=== PATIENT | male | born 1975 | race Caucasian/White ===

== ENCOUNTER 2017-01-15 12:27 | Emergency (ER) | payer OTHER ==
--- NOTE | 2017-01-15 13:18 | RAD ---
EXAM DESCRIPTION: Chest,1 View CLINICAL HISTORY: desat after turning, vent pt COMPARISON: None. IMPRESSION: Single AP portable upright view of the chest shows cardiac silhouette and pulmonary vasculature to be within normal limits. Tracheostomy tube is seen in place with tip at the level of the clavicular heads. Remote appearing left-sided rib trauma is seen. There is some elevation of the left hemidiaphragm with linear probable scarring or atelectasis in the right lung base. There is indistinctness of the left costophrenic angle and hemidiaphragm the could represent small left pleural effusion or chronic pleural thickening given the remote left-sided rib trauma. Increased density in the left retrocardiac region could represent left lower lobe atelectasis or infiltrate versus hiatal hernia. Electronically signed by: Bear Hernandez MD 01/15/2017 1:17 PM CDT
[2017-01-15 14:59] VITALS: O2SAT 98
--- NOTE | 2017-01-15 15:15 | CT ---
EXAM DESCRIPTION: Chest w/o Contrast CLINICAL HISTORY: hypoxia, left lower abnormality COMPARISON: Chest x-ray 01/15/2017. TECHNIQUE: Spiral-axial scans at 5.0 mm intervals through the lungs and thorax without IV contrast. Coronal and sagittal 2.0 Mm reconstructions. No adverse reactions. Total Exam DLP: 687.3 mGy-cm. This exam was performed according to our departmental dose-optimization program which includes automated exposure control, adjustment of the mA and/or kV according to patient size and/or use of iterative reconstruction technique; to reduce radiation dose to as low as reasonably achievable (ALARA). FINDINGS: Atelectasis involving almost the entire left lower lobe with volume loss. Scattered air bronchograms throughout the lobe with no calcifications. Left upper lobe and lingula are expanded. Left lower lobe bronchus is obstructed, but fine detail is limited due to lack of IV contrast. Patchy densities in the inferior lingula. Questionable small effusion. Consolidation with air bronchograms and atelectasis involving most of the right lower lobe. The right upper lobe and right middle lobe are showing compensatory expansion. Perihilar peribronchial wall thickening bilateral upper lobe bronchi and the right bronchus intermedius. Left lower lobe bronchus is narrowed but not obstructed. Ill-defined consolidation in the posterior segment of the right upper lobe extending to the pleura. Questionable small effusion. Endotracheal soft tissue density around the tracheostomy and extending to the posterior hyoid bone with small air bubbles. In the airway. Heterogeneous density in the thyroid gland. Small lymph nodes in the superior and anterior mediastinum. Hilar lymph nodes are difficult to distinguish from pulmonary vascularity with lack of IV contrast. No free air in the included peritoneal space. Gastrostomy tube is present and there is also a catheter in the proximal small bowel partially visualized. No free fluid in the peritoneal space. IMPRESSION: 1. Almost complete collapse of the left lower lobe with few air bronchograms. Compensatory expansion of the left upper lobe and lingula with small infiltrate or atelectasis in the lingula. Left lower lobe bronchus appears to be completely occluded. Unable to determine if intrinsic or extrinsic. Minimal pleural effusion. 2. Atelectasis and infiltrate involving most of the right lower lobe with volume loss. However the right lower lobe bronchus is patent with multiple air bronchograms throughout the lobe. No definite pleural effusion. 3. Tracheostomy tube in customary position. Distal tip is patent. Proximal tube surrounded by soft tissue density extending superiorly in the airway occluding the airway. Electronically signed by: Joseph Kaur MD 01/15/2017 3:14 PM CDT
[2017-01-15] MEDS ORDERED: MEROPENEM 1 GM in SODIUM CHL 0.9% 50ML MIN-BAG+ 50 ML IVPB ONE (15:23)
--- NOTE | 2017-01-15 15:55 | ED.PDOC ---
History of Present Illness - General Chief Complaint: Respiratory Problem Stated Complaint: decreased oxygen sats Time Seen by Provider: 01/15/17 12:28 Source: EMS notes reviewed, family, skilled nursing records Exam Limitations: clinical condition - History of Present Illness Initial Comments: the patient is a 41-year-old male presenting to the emergency room secondary to desaturating at the skilled nursing when his caregivers turn him to treat his sacral wound. The patient is ventilator dependent secondary to traumatic injury around a year ago. He is a quadriplegic. He is unable to communicate. According to his who is present he has had multiple DVTs with PEs. He is supratherapeutic on his INR today with INR of 5.2. No evidence of any spontaneous bleeding. The reports that he did have [place] filters 2 that were taken out. The patient has been on cefuroxime according to skilled nursing records. The states that they put him on that several days ago after an x-ray indicating a possible pneumonia. He is on slightly elevated ventilator settings compared to his baseline currently. He is not febrile. Timing/Duration: unsure Severity: severe Improving Factors: nothing Worsening Factors: nothing Allergies/Adverse Reactions: Allergies NO KNOWN ALLERGY Allergy (Verified 01/15/17 12:57) Home Medications: Ambulatory Orders Acetaminophen [Acetaminophen Extra Stren] 1,000 mg PO Q6H PRN 01/15/17 Baclofen 10 mg PEG TID 01/15/17 Cholecalciferol [Vitamin D3] 1,000 unit PEG DAILY 01/15/17 Coenzyme Q10 (Ubidecarenone) [Coenzyme Q10] 50 mg PEG Q12H 01/15/17 Cyanocobalamin [Vitamin B-12] 1,000 mcg PEG DAILY 01/15/17 Escitalopram [Lexapro] 30 mg PEG DAILY 01/15/17 Esomeprazole Magnesium [Nexium] 40 mg PEG DAILY 01/15/17 Ferrous Sulfate [Ferosul] 220 mg PEG BID 01/15/17 Gabapentin 600 mg PEG TID 01/15/17 Guaifenesin [Tussin Adult] 30 ml PEG QID 01/15/17 HYDROcodone 7.5MG/APAP 325MG [[place] 7.5/325] 1 tab PEG Q12H 01/15/17 Ipratropium/Albuterol [Duoneb] 3 ml NEB Q6H 01/15/17 Lactobacillus [Acidophilus] 1 cap PEG BID 01/15/17 Liothyronine Sodium 7.5 mcg PO DAILY 01/15/17 Loratadine 10 mg PEG DAILY 01/15/17 Methylphenidate HCl 5 mg PEG DAILY 01/15/17 Midodrine HCl 5 - 10 mg PEG PRN 01/15/17 Nutritional Supplements [Grey] 1 pow PEG BID 01/15/17 Ondansetron HCl 4 mg PEG Q6H PRN 01/15/17 Polyvinyl Alcohol [Artificial Tears] 1.4 % OP QID PRN 01/15/17 Potassium Chloride Elixir [Kaochlor Liquid] 15 ml PEG BID 01/15/17 Thiamine HCl 100 mg PEG BID 01/15/17 Tobramycin-Dexamethasone [Tobramycin/Dexamethasone] 1 davi BOTH_EYES BID Tramadol HCl 100 mg PEG TID PRN 01/15/17 Warfarin Sodium [Coumadin] 10 mg PEG DAILY 01/15/17 levETIRAcetam SUSPENSION [Keppra] 7.5 ml PEG BID 01/15/17 Review of Systems - Review of Systems Unable to Obtain Due To: condition, clinical condition Past Medical History (General) - Patient Medical History Hx Congestive Heart Failure: No Hx Hypertension: Yes Hx Diabetes: No - Vaccination History Hx Influenza Vaccination: - unknown Hx Pneumococcal Vaccination: - unknown - Social History Hx Tobacco Use: No Hx Chewing Tobacco Use: Yes - Activities of Daily Living Intermediate/Assisted Living (if applicable):: [facility] Family Medical History - Family History Mother Family History: Unknown Living Status: Still Living Physical Exam - Physical Exam General Appearance: Alert - the patient looks around but does not seem to be able to communicate. Ears, Nose, Throat: normal ENT inspection Neck: other - tracheostomy is in place. Respiratory: other - coarse breath sounds bilaterally but no wheezes. Fair air movement. Cardiovascular/Chest: normal peripheral pulses, regular rate, rhythm, no edema Peripheral Pulses: radial,right: 2+, radial,left: 2+ Gastrointestinal/Abdominal: non tender, soft, other - colostomy is in place. G- tube is in place. Rectal Exam: deferred, other - sacral wound present. Extremity: other - paralysis 4 extremities. +1 edema to bilateral lower extremities. No heel wounds. Neurologic: alert, other - unable to communicate. Skin Exam: normal color - slight pallor. Sacral wound. Comments: Vital Signs - 24 hr 01/15/17 01/15/17 01/15/17 12:30 12:49 13:27 Temperature 98.7 F Pulse Rate [ 75 112 H Right Brachial] Respiratory 18 18 14 Rate Blood Pressure 175/100 134/84 [Right Arm] O2 Sat by Pulse 100 96 Oximetry 01/15/17 01/15/17 14:27 14:58 Temperature Pulse Rate [ 110 H 104 H Right Brachial] Respiratory 14 16 Rate Blood Pressure 136/83 115/69 [Right Arm] O2 Sat by Pulse 96 98 Oximetry Progress - Progress Progress: 01/15/17 15:58 the patient is a 41-year-old quadriplegic with a ventilatorlo-term care facility associated pneumonia. He has an obstructive left lower bronchus. The patient is being transferred for pulmonology evaluation. He does not appear to be septic at this time. Blood culture has been done. The patient is being started on meropenem. ABG shows mild hypercapnia, ventilator rate has been increased slightly. He appears to be oxygenating adequately at this time. He is supratherapeutic on his Coumadin. This will likely need to be corrected before any surgical intervention. He does have a soft tissue abnormality in the proximal airway surrounding the tracheostomy tube that may bear direct visualization if bronchoscopy is done. Transferred for higher level of care. - Results/Orders Results/Orders: Laboratory Tests 01/15/17 01/15/17 01/15/17 13:50 13:50 13:50 WBC 17.1 H RBC 3.88 L Hgb 12.3 L Hct 37.4 L MCV 96.4 H MCH 31.7 H MCHC 32.8 L RDW 14.7 H Plt Count 424 H MPV 7.9 Absolute Neuts (auto) 13.90 H Absolute Lymphs (auto) 1.60 Absolute Monos (auto) 1.50 H Absolute Eos (auto) 0.10 Absolute Basos (auto) 0.00 Neutrophils % 81.3 H Lymphocytes % 9.5 L Monocytes % 8.6 Eosinophils % 0.3 L Basophils % 0.3 PT 58.0 H* INR 5.220 H* PTT (SP) 46.9 H D-Dimer, Quantitative pCO2 pO2 HCO3 ABG pH ABG O2 Saturation ABG Base Excess ABG Deoxyhemoglobin Oxyhemoglobin % Carboxyhemoglobin % Methemoglobin % Sat Calc Total Hemoglobin Sodium 133 L Potassium 4.6 Chloride 93 L Carbon Dioxide 32 H Anion Gap 12.6 BUN 14 Creatinine < 0.40 L BUN/Creatinine Ratio 35.0 H Random Glucose 93 Serum Osmolality 266.5 L Calcium 9.5 Magnesium 1.9 Total Bilirubin 0.4 AST 32 ALT 85 H Alkaline Phosphatase 78 Creatine Kinase 315 H* CK-MB (CK-2) 30.8 H* CK-MB (CK-2) % 9.78 H Troponin I < 0.02 B-Natriuretic Peptide 5.2 Serum Total Protein 8.1 Albumin 3.5 Globulin 4.6 H Albumin/Globulin Ratio 0.8 L 01/15/17 01/15/17 13:50 14:55 WBC RBC Hgb Hct MCV MCH MCHC RDW Plt Count MPV Absolute Neuts (auto) Absolute Lymphs (auto) Absolute Monos (auto) Absolute Eos (auto) Absolute Basos (auto) Neutrophils % Lymphocytes % Monocytes % Eosinophils % Basophils % PT INR PTT (SP) D-Dimer, Quantitative 274 H* pCO2 55 H pO2 83 HCO3 33.6 ABG pH 7.410 ABG O2 Saturation 96.0 ABG Base Excess 7.9 ABG Deoxyhemoglobin 3.9 Oxyhemoglobin % 94.5 Carboxyhemoglobin % 0.4 L Methemoglobin % Sat 1.2 Calc Total Hemoglobin 10.8 L Sodium Potassium Chloride Carbon Dioxide Anion Gap BUN Creatinine BUN/Creatinine Ratio Random Glucose Serum Osmolality Calcium Magnesium Total Bilirubin AST ALT Alkaline Phosphatase Creatine Kinase CK-MB (CK-2) CK-MB (CK-2) % Troponin I B-Natriuretic Peptide Serum Total Protein Albumin Globulin Albumin/Globulin Ratio chest x-ray indicated possible left-sided infiltrate. CT scan of the chest without contrast shows consolidated right lower and left lower lobes. There does appear to be a left lower bronchial obstruction. There also appears to be a soft tissue density surrounding the proximal tracheostomy tube. Departure - Departure Clinical Impression: Ventilator associated pneumonia, Mucus plugging of bronchi Disposition: Transfer to Hospital Condition: Serious Home Medications: Ambulatory Orders Acetaminophen [Acetaminophen Extra Stren] 1,000 mg PO Q6H PRN 01/15/17 Baclofen 10 mg PEG TID 01/15/17 Cholecalciferol [Vitamin D3] 1,000 unit PEG DAILY 01/15/17 Coenzyme Q10 (Ubidecarenone) [Coenzyme Q10] 50 mg PEG Q12H 01/15/17 Cyanocobalamin [Vitamin B-12] 1,000 mcg PEG DAILY 01/15/17 Escitalopram [Lexapro] 30 mg PEG DAILY 01/15/17 Esomeprazole Magnesium [Nexium] 40 mg PEG DAILY 01/15/17 Ferrous Sulfate [Ferosul] 220 mg PEG BID 01/15/17 Gabapentin 600 mg PEG TID 01/15/17 Guaifenesin [Tussin Adult] 30 ml PEG QID 01/15/17 HYDROcodone 7.5MG/APAP 325MG [[place] 7.5/325] 1 tab PEG Q12H 01/15/17 Ipratropium/Albuterol [Duoneb] 3 ml NEB Q6H 01/15/17 Lactobacillus [Acidophilus] 1 cap PEG BID 01/15/17 Liothyronine Sodium 7.5 mcg PO DAILY 01/15/17 Loratadine 10 mg PEG DAILY 01/15/17 Methylphenidate HCl 5 mg PEG DAILY 01/15/17 Midodrine HCl 5 - 10 mg PEG PRN 01/15/17 Nutritional Supplements [Grey] 1 pow PEG BID 01/15/17 Ondansetron HCl 4 mg PEG Q6H PRN 01/15/17 Polyvinyl Alcohol [Artificial Tears] 1.4 % OP QID PRN 01/15/17 Potassium Chloride Elixir [Kaochlor Liquid] 15 ml PEG BID 01/15/17 Thiamine HCl 100 mg PEG BID 01/15/17 Tobramycin-Dexamethasone [Tobramycin/Dexamethasone] 1 davi BOTH_EYES BID Tramadol HCl 100 mg PEG TID PRN 01/15/17 Warfarin Sodium [Coumadin] 10 mg PEG DAILY 01/15/17 levETIRAcetam SUSPENSION [Keppra] 7.5 ml PEG BID 01/15/17 Transfer to Outside Facility - Transfer Information Accepting Provider:: dr [email or web address] Accepting Facility: [facility] Reason for Transfer: required specialist not available
[2017-01-15] MEDS ORDERED: MEROPENEM 1 GM VIAL IVPB ONE (16:02)
[2017-01-15] MEDS ORDERED: SODIUM CHL 0.9% 50ML MIN-BAG+ 50 ML IVPB ONE (16:02)
[2017-01-15] MEDS ORDERED: MORPHINE SULFATE INJ 10 MG/ML VIAL IV ONE (16:33)
[2017-01-15 16:54] VITALS: BP 135/76; TEMP 100.9
== END 2017-01-15 17:02 | disposition short-term general hospital (02) ==
LOC: ER 12:27
DX: J95.851 Ventilator associated pneumonia (principal); T17.590A Other foreign object in bronchus causing asphyxiation, initial encounter; I10 Essential (primary) hypertension; X58.XXXA Exposure to other specified factors, initial encounter; Z86.711 Personal history of pulmonary embolism; Z86.718 Personal history of other venous thrombosis and embolism; Z79.01 Long term (current) use of anticoagulants; Z79.899 Other long term (current) drug therapy
CPT/HCPCS: 36415; 71010; 71250; 80053; 82550; 82553; 83735; 83880; 84484; 85025; 85379; 85610; 85730; 87040; J2185; J2270; J7050